=== PATIENT | male | born 1950 | race Caucasian/White ===

== ENCOUNTER 2022-04-21 15:53 | Emergency (ER) | payer MEDICARE, MEDICAID, SELFPAY ==
--- NOTE | 2022-04-21 16:13 | XRR_ITS ---
PROCEDURE INFORMATION: Exam: XR Chest Exam date and time: 04/21/2022 4:40 PM Age: 72 years old Clinical indication: Pain; Angina pectoris; Prior surgery; Additional info: Cp TECHNIQUE: Imaging protocol: Radiologic exam of the chest. Views: 1 view. COMPARISON: CR Chest 1 view [id number] 05/16/2018 12:13 PM FINDINGS: Lungs: Unremarkable. No consolidation. Pleural spaces: Unremarkable. No pleural effusion. No pneumothorax. Heart/Mediastinum: Unremarkable. No cardiomegaly. Bones/joints: Stable sternotomy. Soft tissues: Lordotic chest x-ray. XR/XR chest 1V portable [id number] IMPRESSION: No acute findings.
--- NOTE | 2022-04-21 16:13 | ECG_ITS ---
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 Measurements Intervals [place] Rate: 67 P: 67 [place]: 178 QRS: -20 QRSD: 148 T: 74 QT: 458 QTc: 486 Interpretive Statements SINUS RHYTHM WITH SINUS ARRHYTHMIA INTRAVENTRICULAR CONDUCTION DELAY [130+ ms QRS DURATION] Compared to ECG 05/16/2018 15:27:03 Intraventricular conduction delay now present T-wave abnormality no longer present Prolonged QT interval no longer present Electronically Signed On 04-21-2022 21:00:38 CDT by Jane Ruiz M.D. [id number]
[2022-04-21 16:14] VITALS: BP 111/73; PULSE 70; RESP 16; TEMP 36.6; O2SAT 95; BMI 27.3
--- NOTE | 2022-04-21 16:15 | ED_ITS ---
HPI - SOB/Dyspnea General: Chief Complaint: Shortness of Breath/Dyspnea Stated Complaint: SOB; BACK PAIN Time Seen by Provider: 04/21/22 16:04 History of Present Illness: HPI Narrative: Patient comes in with chest pain. Describes it as midsternal, radiates into his back, states it is more in the back. States he has been having it off and on for the past a while but today's episode started about 4 hours prior to arrival. States it is gone at this time except a little bit in the back. States this feels similar to previous episodes where he is required stent placement. He has a history of coronary artery disease status post bypass and numerous stents with the most recent one being about a year ago. States he has spoken with his pharmacology associate at [facility] and is scheduled for a stress test soon, however today with the increased pain he came to the emergency department. Denies fever, cough, congestion, vomiting, or diarrhea. Associated symptoms: Reports chest pain; Deny abdominal pain, fever(s), nausea, palpitations, polyuria or vomiting Review of Systems Const: Denies: fever(s) or body aches Eyes: Denies: change in vision or blurry vision ENMT: Denies: throat pain or odynophagia Card: Reports: chest pain; Denies: palpitations Resp: Denies: dyspnea or productive cough GI: Denies: abdominal pain, nausea or vomiting : Denies: flank pain or dysuria Musc: Denies: neck pain or back pain Skin/Breast: Denies: rash or pruritus Neuro: Denies: headache(s) or numbness in extremities Psych: Denies: anxiety or change in appetite Endo: Denies: polyuria or excessive sweating PFS ED PFSH: Family History (Updated 12/13/19 @ 10:42 by Radha Pederson RN) Other CAD (coronary artery disease) Physical Exam Const: COMMON NORMALS: no acute distress, patient oriented x3, healthy appearing and alert HENMT: COMMON NORMALS: normocephalic and atraumatic HEAD & SCALP: normocephalic and atraumatic Eye: COMMON NORMALS: Equal, round and reactive pupils present and EOMs intact bilaterally PUPIL: Yes Equal, round and reactive pupils present Neck/C-Spine: COMMON NORMALS: full ROM and supple Resp: COMMON NORMALS: normal respiratory effort, No retractions and No use of accessory muscles Cardio: COMMON NORMALS: regular rate and regular rhythm RATE: regular rate RHYTHM: regular rhythm GI: COMMON NORMALS: Normal to inspection, nondistended, normoactive bowel sounds present, Soft to palpation and non-tender PALPATION: Yes Soft to palpation Back/Pelvis: COMMON NORMALS: thoracic and lumbar spine normal to inspection and no thoracic nor lumbar tenderness Extremity: COMMON NORMALS: normal to inspection and full ROM Neuro: COMMON NORMALS: patient oriented x3 SENSORIUM/ORIENTATION: Yes alert Psych: COMMON NORMALS: mental status grossly normal and cooperative Skin: COMMON NORMALS: no rashes or lesions noted and no wounds GENERAL SKIN EXAM: no rashes or lesions noted Course Vital Signs: Vital signs: Vital Signs Temperature 97.9 F 04/21/22 16:14 Pulse Rate 65 04/21/22 17:20 Respiratory Rate 21 H 04/21/22 17:20 Blood Pressure 107/63 04/21/22 17:20 Pulse Oximetry 96 04/21/22 17:20 MDM - SOB/Dyspnea Medical Decision Making Patient comes in with chest pain. Describes it as midsternal, radiates into his back, states it is more in the back. States he has been having it off and on for the past a while but today's episode started about 4 hours prior to arrival. States it is gone at this time except a little bit in the back. States this feels similar to previous episodes where he is required stent placement. He has a history of coronary artery disease status post bypass and numerous stents with the most recent one being about a year ago. States he has spoken with his pharmacology associate at [facility] and is scheduled for a stress test soon, however today with the increased pain he came to the emergency department. Denies fever, cough, congestion, vomiting, or diarrhea. Physical exam is unremarkable. Will check labs, EKG, x-ray, and reassess. On reassessment we are awaiting test results. Will sign out to the oncoming physician to disposition per the test results. Lab Data : 04/21/22 17:33 04/21/22 17:33 Labs/Radiology: Radiology Impressions Chest X-Ray 04/21/22 16:13 IMPRESSION: No acute findings. Laboratory Results WBC 4.1 10^3/uL (4.0-10.0) 04/21/22 17:33 RBC 3.17 10^6/uL (4.1-5.3) L 04/21/22 17: Hgb 11.8 g/dL (11.7-16.6) 04/21/22 17: Hct 35.7 % (42.0-52.0) L 04/21/22 17: MCV 112.6 fl (80-94) H 04/21/22 17: MCH 37.2 pg (28.0-34.0) H 04/21/22 17: MCHC 33.1 g/dL (30.0-36.0) 04/21/22 17: RDW 14.2 % (12.1-15.1) 04/21/22: Plt Count 158 10^3/cmm (130-400) 04/21/22 17: MPV 9.6 fL (7.4-10.4) 04/21/22 17: Neut % (Auto) 66.5 % 04/21/22 17: Lymph % (Auto) 16.7 % 04/21/22 17: [place] % (Auto) 12.4 % 04/21/22 17: Eos % (Auto) 3.2 % 04/21/22 17: Baso % (Auto) 0.7 % 04/21/22: Neut # (Auto) 2.74 10^3/uL (1.8-7.7) 04/21/22 17: Lymph # (Auto) 0.7 10^3/uL (0.8-4.8) L 04/21/22 17: [place] # (Auto) 0.5 10^3/uL (0.2-0.9) 04/21/22 17: Eos # (Auto) 0.1 10^3/uL (0.0-0.8) 04/21/22: Baso # (Auto) 0.0 10^3/uL (0.0-0.1) 04/21/22 17: Nucleated RBC % (auto) 0 % 04/21/22 17: Nucleated RBCs # 0.0 /100WBC 04/21/22 17: Discharge Plan Discharge Condition: Stable Prescriptions: No Action gabapentin 400 mg capsule 400 mg PO TID 0RF clopidogrel 75 mg tablet 75 mg PO DAILY 0RF citalopram 20 mg tablet 20 mg PO DAILY 0RF aspirin [Aspir-81] 81 mg tablet,delayed release (DR/EC) 81 mg PO DAILY 0RF ranolazine [Ranexa] 500 mg tablet extended release 12 hr 500 mg PO Q12H 0RF alprazolam 0.5 mg tablet 0.5 mg PO TID PRN (Reason: anxiety) 0RF isosorbide mononitrate 30 mg tablet extended release 24 hr 30 mg PO DAILY 0RF captopril 12.5 mg tablet 6.25 mg PO BID 0RF nitroglycerin [Nitrostat] 0.4 mg tablet, sublingual 0.4 mg SUBLINGUAL Q5M PRN0RF ezetimibe [Zetia] 10 mg tablet 10 mg PO DAILY 0RF atorvastatin [Lipitor] 40 mg tablet 40 mg PO DAILY 0RF carvedilol 3.125 mg tablet 3.125 mg PO BID 0RF furosemide 40 mg tablet 80 mg PO DAILY 0RF pantoprazole [Protonix] 40 mg tablet,delayed release (DR/EC) 40 mg PO DAILY 0RF allopurinol 100 mg tablet 100 mg PO BID 0RF albuterol sulfate [ProAir HFA] 90 mcg/actuation HFA aerosol inhaler 2 puff INHALATION Q6H PRN0RF Referrals: [facility] [Other] Coding Level of Care Code 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
[2022-04-21 16:21] VITALS: BP 111/73; PULSE 73; RESP 16; O2SAT 95
[2022-04-21 17:20] VITALS: BP 107/63; PULSE 65; RESP 21; O2SAT 96
[2022-04-21 17:42] LABS: Basophils % 0.7 %; Eosinophils # 0.1 10^3/uL (0.0-0.8); Eosinophils % 3.2 %; Hematocrit 35.7 % (42.0-52.0); Hemoglobin 11.8 g/dL (11.7-16.6); Lymphocytes # 0.7 10^3/uL (0.8-4.8); Lymphocytes % 16.7 %; Mean Corpuscular HGB Conc 33.1 g/dL (30.0-36.0); Mean Corpuscular Hemoglobin 37.2 pg (28.0-34.0); Mean Corpuscular Volume 112.6 fl (80-94); Mean Platelet Volume 9.6 fL (7.4-10.4); Monocytes # 0.5 10^3/uL (0.2-0.9); Monocytes % 12.4 %; Neutrophils # 2.74 10^3/uL (1.8-7.7); Neutrophils % 66.5 %; Nucleated Red Blood Cells % 0 %; Platelet Count 158 10^3/cmm (130-400); Red Blood Count 3.17 10^6/uL (4.1-5.3); Red Cell Distribution Width 14.2 % (12.1-15.1); White Blood Count 4.1 10^3/uL (4.0-10.0)
[2022-04-21 18:12] LABS: Alanine Aminotransferase 14 U/L (0-41); Albumin Level 3.9 g/dL (3.5-5.2); Alkaline Phosphatase 70 IU/L (40-130); Anion Gap 10.5 (5-19); Aspartate Amino Transferase 16 U/L (0-40); Blood Urea Nitrogen 33 mg/dL (8-23); Calcium 8.8 mg/dL (8.5-10.5); Carbon Dioxide 30 mmol/L (22-29); Chloride 103 mmol/L (98-107); Globulin 1.8 g/dL (1.3-4.6); Glucose 152 mg/dL (65-115); Lipase 39 U/L (13-60); Osmolality Calculated 298 mOsm/kg (285-295); Potassium 4.5 mmol/L (3.5-5.1); Sodium 139 mmol/L (136-145); Total Bilirubin 0.6 mg/dL (0.15-1.2); Total Protein 5.7 g/dL (6.6-8.7)
--- NOTE | 2022-04-21 18:13 | ECG_ITS ---
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 Measurements Intervals [place] Rate: 64 P: 65 [place]: 182 QRS: -24 QRSD: 142 T: 71 QT: 452 QTc: 468 Interpretive Statements SINUS RHYTHM INTRAVENTRICULAR CONDUCTION DELAY [130+ ms QRS DURATION] Compared to ECG 04/21/2022 16:18:08 Sinus arrhythmia no longer present Electronically Signed On 04-21-2022 21:03:00 CDT by Jane Ruiz M.D. [id number]
[2022-04-21 18:15] LABS: Troponin(5th) Baseline 22 ng/L (0-15)
[2022-04-21 18:31] VITALS: BP 115/74; PULSE 60; RESP 17; O2SAT 97
[2022-04-21 19:38] LABS: Troponin 5 2HR 22.24 ng/L (0-15)
[2022-04-21 19:39] LABS: Troponin 5 2HR Delta 0.24 ABS# (0-10)
== END 2022-04-21 20:15 | disposition left against medical advice (07) ==
PROVIDERS: Emergency Medicine; Emergency Provider Emergency Medicine; PCP Family Medicine
DX: R07.9 Chest pain, unspecified (principal); R06.02 Shortness of breath; Z79.02 Long term (current) use of antithrombotics/antiplatelets; Z79.82 Long term (current) use of aspirin
CPT/HCPCS: 36415; 71045; 80053; 83690; 84484; 85025; 93005; 99285

== ENCOUNTER → 2022-07-10 11:58 | Outpatient (BNVA) | payer MEDICARE, MEDICAID, SELFPAY | PROVIDERS: PCP Family Medicine; Visit Provider Nurse Practitioner Family | DX: M54.50 Low back pain, unspecified (principal) | CPT/HCPCS: 72100 ==

== ENCOUNTER → 2023-01-03 14:17 | Outpatient (BNVA) | payer MEDICARE, MEDICAID, SELFPAY | PROVIDERS: PCP Family Medicine; Visit Provider Nurse Practitioner Family | DX: M54.2 Cervicalgia (principal); M54.50 Low back pain, unspecified; M47.812 Spondylosis without myelopathy or radiculopathy, cervical region | CPT/HCPCS: 72040; 72100 ==

== ENCOUNTER 2023-01-21 12:13 | Outpatient (CLI) | payer MEDICARE, MEDICAID, SELFPAY ==
--- NOTE | 2023-01-21 12:23 | USCV_ITS ---
Yoni Reed Age: 72 Gender: M : 1950 Exam Date: 01/21/2023 12:47 Ordering Phys: Isabella Irene MANAGER FRENCH-BC XX Technologist: J Luis Ring Exam Location: [facility] – [place] Indication: cca stenoisis Risk Factors: Previous Vascular Surgery: Right Brachial BP: / Left Brachial BP: / Right Left Velocity (cm/s) Spectral Plaque Velocity (cm/s) Spectral Plaque Syst/Diast Broadening Syst/Diast Broadening 65.10/ 15.40 Prox CCA 80.30 / 18.80 69.50/ 14.30 Mid CCA 68.40 / 17.90 48.50/ 13.20 Hetro Distal CCA 63.20 / 16.20 Hetro 114.70/19.80 Hetro Prox ICA 41.40 / 9.20 Hetro 67.30/ 20.90 Hetro Mid ICA 85.40 / 23.70 Hetro 86.00/ 24.30 Distal ICA 94.70 / 31.60 142.20 ECA 113.10 1.65 ICA/CCA 1.18 Antegrade Vertebral Antegrade 48.60/ 16.40 cm/s 37.50/ 7.20 cm/s Bi Subclavian Bi 101.7 155.4 0 0 CONCLUSIONS Right ICA stenosis <50%. Moderate calcified atheromatous plaque right carotid bulb/ICA. Left ICA stenosis <50%. Moderate calcified atheromatous plaque left carotid bulb/ICA. Normal antegrade Doppler flow noted in the right vertebral artery. Normal antegrade Doppler flow noted in the left vertebral artery. Mk Ortega MD (Electronically Signed) Final Date: 21 January 2023 17:00 S
== END 2023-01-21 12:14 | disposition home or self-care (01) ==
LOC: RAD 12:15
PROVIDERS: PCP Family Medicine; Visit Provider Nurse Practitioner Family
DX: I65.23 Occlusion and stenosis of bilateral carotid arteries (principal)
CPT/HCPCS: 93880

== ENCOUNTER → 2023-02-05 15:46 | Outpatient (BNVA) | payer MEDICARE, MEDICAID, SELFPAY | PROVIDERS: PCP Family Medicine; Referring Provider Nurse Practitioner Family; Visit Provider Nurse Practitioner Family | DX: R06.02 Shortness of breath (principal); Z77.120 Contact with and (suspected) exposure to mold (toxic) | CPT/HCPCS: 71046 ==

== ENCOUNTER 2023-07-28 12:18 | Outpatient (CLI) | payer MEDICARE, MEDICAID, SELFPAY ==
--- NOTE | 2023-07-28 12:44 | CT_ITS ---
WS: [id number] CT HEAD TECHNIQUE: Noncontrast CT of the head obtained from the skullbase to the vertex. CLINICAL INFORMATION: Unspecified dementia, psych/mood/anxiety COMPARISON: None. DLP: 1087.[address] scans at [facility] use at least one of these dose optimization techniques: automated e xposure control; mA and/or kV adjustment per patient size (includes targeted exams where dose is matc hed to clinical indication); or iterative reconstruction. FINDINGS: No evidence of intracranial hemorrhage or mass effect. Ventricular system and basal cisterns are wharton nt. Mild small vessel changes with moderate parenchymal volume loss worse in the frontal lobes. No ex tra-axial fluid collections. No evidence of mass or mass effect. Intracranial vascular calcification. Opacification RIGHT mastoid air cells and RIGHT middle ear. Recommend correlation for mastoiditis and otitis media. LEFT mastoid air cells are well aerated. IMPRESSION: 1. No evidence of intracranial hemorrhage or mass effect. 2. Mild small vessel changes. Moderate parenchymal volume loss worse in the frontal lobes. 3. Opacification RIGHT mastoid air cells and RIGHT middle ear. Recommend correlation for RIGHT masto iditis and otitis media 4. Intracranial vascular calcification.
== END 2023-07-28 12:19 | disposition home or self-care (01) ==
LOC: RAD 12:18
PROVIDERS: PCP Family Medicine; Visit Provider Internal Medicine
DX: F03.92 Unspecified dementia, unspecified severity, with psychotic disturbance (principal); F03.93 Unspecified dementia, unspecified severity, with mood disturbance; F03.94 Unspecified dementia, unspecified severity, with anxiety; G31.84 Mild cognitive impairment of uncertain or unknown etiology; G47.33 Obstructive sleep apnea (adult) (pediatric); I73.9 Peripheral vascular disease, unspecified; H74.91 Unspecified disorder of right middle ear and mastoid; I67.2 Cerebral atherosclerosis
CPT/HCPCS: 70450

== ENCOUNTER → 2023-09-05 10:22 | Outpatient (BNVA) | payer MEDICARE, MEDICAID, SELFPAY | PROVIDERS: PCP Family Medicine; Referring Provider Nurse Practitioner Family; Visit Provider Nurse Practitioner Family | DX: R06.02 Shortness of breath (principal); I70.0 Atherosclerosis of aorta | CPT/HCPCS: 71046 ==

== ENCOUNTER → 2025-09-15 08:10 | Outpatient (BNVA) | payer MEDICARE, MEDICAID, SELFPAY | PROVIDERS: PCP Family Medicine; Visit Provider Student in an Organized Health Care Education/Training Program | DX: Z12.11 Encounter for screening for malignant neoplasm of colon (principal) | CPT/HCPCS: 99024; 99203 ==